=== PATIENT | male | born 1965 | race Caucasian/White ===

== ENCOUNTER 2017-03-30 05:28 | Emergency (ER) | payer MEDICARE ==
[~2017-03-30] VITALS: Ht 180.3 cm; Wt 102.6 kg
[2017-03-30 05:50] VITALS: BP_SYST 141; BP_SYST 150; BP_DIAS 83; BP_DIAS 89; PULSE 67; RESP 18; O2SAT 99
[2017-03-30 05:52] VITALS: BP 150/83; PULSE 67; RESP 20
[2017-03-30 05:57] VITALS: BP 150/83; PULSE 71; RESP 20; TEMP 97.7; O2SAT 99
[2017-03-30 06:10] LABS: AUTOMATED NEUTROPHIL # 3.9 TH/MM3 (1.8-7.7); BASOPHIL # 0.1 TH/MM3 (0-0.2); BASOPHIL % 0.8 % (0.0-2.0); EOSINOPHIL # 0.2 TH/MM3 (0-0.4); EOSINOPHIL % 2.3 % (0.0-4.0); HEMOGLOBIN 14.6 GM/DL (13.0-17.0); LYMPH % 29.2 % (9.0-44.0); MEAN CELL VOLUME 96.3 FL (80.0-100.0); MEAN CORPUSCULAR HEMOGLOBIN 32.1 PG (27.0-34.0); MEAN CORPUSCULAR HGB CONC 33.3 % (32.0-36.0); MEAN PLATELET VOLUME 8.3 FL (7.0-11.0); MONO % 11.9 % (0.0-8.0); MONOCYTE # 0.8 TH/MM3 (0-0.9); NEUT % 55.8 % (16.0-70.0); PLATELET COUNT 334 TH/MM3 (150-450); RED BLOOD COUNT 4.56 MIL/MM3 (4.50-5.90); RED CELL DISTRIBUTION WIDTH 12.6 % (11.6-17.2)
--- NOTE | 2017-03-30 06:10 | RADRPT ---
EXAM DATE/TIME: 03/30/2017 05:56 [facility] COMPARISON: No previous studies available for comparison. INDICATIONS : Left arm pain since yesterday. MEDICAL HISTORY : Hypertension. Diabetes SURGICAL HISTORY : None. ENCOUNTER: Initial ACUITY: 1 day PAIN SCORE: 0/10 LOCATION: Bilateral chest FINDINGS: A single view of the chest demonstrates the lungs to be symmetrically aerated without evidence of mas s, infiltrate or effusion. The cardiomediastinal contours are unremarkable. Osseous structures are intact. CONCLUSION: No acute disease. Andi Barakat MD on March 30, 2017 at 6:07 Board Certified Radiologist. This report was verified electronically.
[2017-03-30 06:20] LABS: CHLORIDE 103 MEQ/L (98-107); SODIUM (NA) 137 MEQ/L (136-145)
[2017-03-30] MEDS ORDERED: METF1000 PO (06:20)
[2017-03-30] MEDS ORDERED: AMLO10TA2 PO (06:20)
[2017-03-30] MEDS ORDERED: ATOR10TA15 PO (06:20)
[2017-03-30] MEDS ORDERED: BISO5TAB2 PO (06:20)
[2017-03-30] MEDS ORDERED: BENA20TA PO ×2 (06:20)
[2017-03-30] MEDS ORDERED: GLIP1TAB51 PO (06:20)
[2017-03-30] MEDS ORDERED: GABA300C5 PO (06:20)
[2017-03-30] MEDS ORDERED: METF500T PO (06:20)
[2017-03-30 06:22] LABS: CALCIUM 9.1 MG/DL (8.5-10.1)
[2017-03-30] MEDS ORDERED: DIPH25CA PO (06:22)
[2017-03-30 06:23] LABS: BLOOD UREA NITROGEN 11 MG/DL (7-18); GLUCOSE,RANDOM 193 MG/DL (74-106); PROTHROMBIN TIME - PATIENT 9.7 SEC (9.8-11.6)
[2017-03-30 06:24] LABS: BICARBONATE 27.3 MEQ/L (21.0-32.0); MAGNESIUM 1.6 MG/DL (1.5-2.5)
--- NOTE | 2017-03-30 06:25 | PD ---
HPI Chief Complaint: Pain: Acute or Chronic Time Seen by Provider: 05:42 Travel History International Travel<30 days: No Contact w/Intl Traveler<30days: No Traveled to known affect area: No History of Present Illness HPI 51 year-old male presents to the emergency department by private transportation for complaint of intermittent left arm ache since yesterday. Patient took aspirin 325 mg around 2 PM yesterday and then 81 mg aspirin at bedtime. Patient states due to persistent discomfort in his left arm sent to come to the emergency room for evaluation. Patient denies chest pain or referred neck jaw back shoulder arm pain. Patient does have history of dyslipidemia diabetes and hypertension that are well controlled on medication. Patient does not smoke cigarettes. Patient does have family history of cardiac disease in his grandfather and his father. Patient denies personal history of CAD. Patient has known thoracic and lumbar spine disc disease has had previous laminectomy. Patient states he has not had evaluation of his neck for degenerative changes were discussed disease. Patient states the left arm ache does radiate into the left side of the neck. Patient denies any numbness tingling or weakness of the extremity. Patient has diabetic peripheral neuropathy and neuropathy secondary to lumbar stenosis according to the patient. Patient rates his discomfort 1/10 in intensity at this time. No report of new lower extremity numbness tingling weakness saddle anesthesia or bladder or bowel dysfunction. Patient reports left arm ache at worst a 6/10 in intensity. PFSH Past Medical History Narrative Medical Hypertension diabetes dyslipidemia; family history myocardial infarction; no tobacco use; nursing notes reviewed Diabetes: Yes Patient Takes Glucophage: Yes (03/29/17) Diminished Hearing: No Hypertension: Yes Medical other: Yes Musculoskeletal: Yes (NEUROPATHY) Tetanus Vaccination: Unknown Past Surgical History Thoracic Surgery: Yes Social History Alcohol Use: Yes (RARELY) Tobacco Use: No Substance Use: No Allergies-Medications (Allergen,Severity, Reaction): Coded Allergies: No Known Allergies (Unverified , 03/30/17) Reported Meds & Prescriptions Reported Meds & Active Scripts Active Reported Diphenhydramine (Diphenhydramine HCl) 25 Mg Cap 25 Mg PO HS PRN Benazepril (Benazepril HCl) 20 Mg Tab 20 Mg PO DAILY Benazepril (Benazepril HCl) 20 Mg Tab 20 Mg PO BID Amlodipine (Amlodipine Besylate) 10 Mg Tab 10 Mg PO DAILY Bisoprolol-Hydrochlorothiazide 5-6.25 Mg Tab 1 Tab PO DAILY Atorvastatin (Atorvastatin Calcium) 10 Mg Tab 10 Mg PO HS Metformin (Metformin HCl) 500 Mg Tab 500 Mg PO DAILY With a meal Metformin (Metformin HCl) 1,000 Mg Tab 1,000 Mg PO BIDPC Glipizide ER (Glipizide) 10 Mg Gay 10 Mg PO BID Take with breakfast or first main meal of the day Gabapentin 300 Mg Cap 300 Mg PO TID Narrative Medication Amlodipine/benazepril Review of Systems Except as stated in HPI: all other systems reviewed are Neg Physical Exam Narrative GENERAL: Well-developed well-nourished male in no acute distress no respiratory distress SKIN: Warm and dry. HEAD: Normocephalic. EYES: No scleral icterus. No injection or drainage. NECK: Supple, trachea midline. No JVD or lymphadenopathy. CARDIOVASCULAR: Regular rate and rhythm without murmurs, gallops, or rubs. RESPIRATORY: Breath sounds equal bilaterally. No accessory muscle use. GASTROINTESTINAL: Abdomen soft, non-tender, nondistended. MUSCULOSKELETAL: No cyanosis, or edema. BACK: Nontender without obvious deformity. No CVA tenderness. Data Data Last Documented VS Vital Signs Date Time Temp Pulse Resp B/P (MAP) Pulse Ox O2 Delivery O2 Flow Rate FiO2 03/30/17 07:10 60 18 123/71 (88) 96 Room Air 03/30/17 05:57 97.7 Orders Orders Electrocardiogram (03/30/17 05:42) Basic Metabolic Panel (Bmp) (03/30/17 05:42) Ckmb (Isoenzyme) Profile (03/30/17 05:42) Complete Blood Count With Diff (03/30/17 05:42) Magnesium (Mg) (03/30/17 05:42) Prothrombin Time / Inr (Pt) (03/30/17 05:42) Act Partial Throm Time (Ptt) (03/30/17 05:42) Troponin I (03/30/17 05:42) Chest, Single Ap (03/30/17 05:42) Ecg Monitoring (03/30/17 05:42) Bilateral Bp Monitoring (03/30/17 05:42) Iv Access Insert/Monitor (03/30/17 05:42) Oximetry (03/30/17 05:42) Oxygen Administration (03/30/17 05:42) CKMB (03/30/17 05:55) CKMB% (03/30/17 05:55) Ct Cerv Spine W/O Contrast (03/30/17 ) Aspirin Chew (Aspirin Chew) (03/30/17 07:00) Ketorolac Inj (Toradol Inj) (03/30/17 07:00) Labs Laboratory Tests Test 03/30/17 05:55 White Blood Count 7.0 TH/MM3 Red Blood Count 4.56 MIL/MM3 Hemoglobin 14.6 GM/DL Hematocrit 44.0 % Mean Corpuscular Volume 96.3 FL Mean Corpuscular Hemoglobin 32.1 PG Mean Corpuscular Hemoglobin Concent 33.3 % Red Cell Distribution Width 12.6 % Platelet Count 334 TH/MM3 Mean Platelet Volume 8.3 FL Neutrophils (%) (Auto) 55.8 % Lymphocytes (%) (Auto) 29.2 % Monocytes (%) (Auto) 11.9 % Eosinophils (%) (Auto) 2.3 % Basophils (%) (Auto) 0.8 % Neutrophils # (Auto) 3.9 TH/MM3 Lymphocytes # (Auto) 2.0 TH/MM3 Monocytes # (Auto) 0.8 TH/MM3 Eosinophils # (Auto) 0.2 TH/MM3 Basophils # (Auto) 0.1 TH/MM3 CBC Comment DIFF FINAL Differential Comment Prothrombin Time 9.7 SEC Prothromb Time International Ratio 1.0 RATIO Activated Partial Thromboplast Time 25.9 SEC Blood Urea Nitrogen 11 MG/DL Creatinine 0.89 MG/DL Random Glucose 193 MG/DL Calcium Level 9.1 MG/DL Magnesium Level 1.6 MG/DL Sodium Level 137 MEQ/L Potassium Level 3.8 MEQ/L Chloride Level 103 MEQ/L Carbon Dioxide Level 27.3 MEQ/L Anion Gap 7 MEQ/L Estimat Glomerular Filtration Rate 89 ML/MIN Total Creatine Kinase 109 U/L Creatine Kinase MB 1.1 NG/ML Troponin I LESS THAN 0.02 NG/ML MDM Medical Decision Making Medical Screen Exam Complete: Yes Emergency Medical Condition: Yes Medical Record Reviewed: Yes Interpretation(s) EKG: Normal sinus rhythm rate [address] elevation injury pattern or ectopy noted Last Impressions Chest X-Ray 03/30/17 0542 Signed Impressions: Service Date/Time: Thursday, March 30, 2017 05:56 - CONCLUSION: No acute disease. 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 Labs pending chest x-ray reveals no acute abnormalities Lab values are found to be in normal range except for random glucose of 193 cardiac enzymes CK and troponin I values are found to be in normal range Cardiac risk factor male, age 51, hypertension, dyslipidemia, diabetes, family history of CAD; left upper extremity may reflect anginal equivalent however may also reflect cervical radiculopathy CT cervical spine noncontrast ordered and patient offered observation admission to chest pain center per protocol @7:15 AM care signed over to Dr. Alonso for follow-up of pending CT cervical spine Sherrie Butts MD Mar 30, 2017 06:25
[2017-03-30 06:26] LABS: CREATININE 0.89 MG/DL (0.60-1.30); GLOMERULAR FILTRATION RATE 89 ML/MIN (>89)
[2017-03-30 06:31] LABS: TROPONIN I LESS THAN 0.02 NG/ML (0.02-0.05)
[2017-03-30] MEDS ORDERED: ASPIRIN 81 MG CHEW TAB CHEW ONE (07:00)
[2017-03-30] MEDS ORDERED: KETOROLAC TROMETHAMINE 30 MG/ML (IVP) VIAL IV PUSH ONE (07:00)
[2017-03-30 07:10] VITALS: BP 123/71; PULSE 60; RESP 18; O2SAT 96
--- NOTE | 2017-03-30 07:54 | RADRPT ---
EXAM DATE/TIME: 03/30/2017 07:26 [facility] COMPARISON: No previous studies available for comparison. INDICATIONS : Left arm pain since yesterday. No injury. RADIATION DOSE: 26.65 CTDIvol (mGy) MEDICAL HISTORY : Hypertension. Diabetes. SURGICAL HISTORY : None. ENCOUNTER: Initial ACUITY: 2 days PAIN SCALE: 0/10 LOCATION: neck TECHNIQUE: Volumetric scanning of the cervical spine was performed. Multiplanar reconstructions in the sagittal, coronal and oblique axial planes were performed. Using automated exposure control and adjustment o f the mA and/or kV according to patient size, radiation dose was kept as low as reasonably achievable to obtain optimal diagnostic quality images. DICOM format image data is available electronically f or review and comparison. FINDINGS: VERTEBRAE: Normal vertebral body height. Degenerative changes greatest from C5-C7. Anterior plate osteophytes C4 -C7. No compression fracture. ALIGNMENT: No evidence of subluxation. C2-C3: The bony spinal canal is normal in size. No evidence of disc bulge or herniation. The neural forami na are bilaterally patent. C3-C4: The bony spinal canal is normal in size. No evidence of disc bulge or herniation. Uncovertebral spur ring causes moderate left and mild right neural foraminal narrowing C4-C5: The bony spinal canal is normal in size. No evidence of disc bulge or herniation. Uncovertebral spur ring causes moderate left neural foraminal narrowing. Right neural foramina is patent. C5-C6: Mild broad-based protrusion abuts the thecal sac. No canal stenosis. Uncovertebral spurring causes mi ld bilateral neural foraminal narrowing C6-C7: Moderate broad-based extrusion abuts the ventral thecal sac and causes [id number] canal stenosi s. Mild bilateral neural foraminal narrowing, greater on the left. C7-T1: The bony spinal canal is normal in size. No evidence of disc bulge or herniation. The neural forami na are bilaterally patent. CONCLUSION: Degenerative changes as described above. Michael Lubin MD on March 30, 2017 at 7:48 Board Certified Radiologist. This report was verified electronically.
[2017-03-30 07:55] VITALS: BP 119/68; PULSE 63; RESP 16; O2SAT 97
[2017-03-30] MEDS ORDERED: PRED20 PO (08:09)
--- NOTE | 2017-03-30 08:10 | PD ---
Physical Exam Date Seen by Provider: Mar 30, 2017 Narrative Care was assumed at [address] of his C-spine. Patient reports left arm pain. He gives a history of previous lumbar radiculopathy. He does state that the pain in his left arm is similar. Data Data Last Documented VS Vital Signs Date Time Temp Pulse Resp B/P (MAP) Pulse Ox O2 Delivery O2 Flow Rate FiO2 03/30/17 07:55 63 16 119/68 (85) 97 Room Air 03/30/17 05:57 97.7 Orders Orders Electrocardiogram (03/30/17 05:42) Basic Metabolic Panel (Bmp) (03/30/17 05:42) Ckmb (Isoenzyme) Profile (03/30/17 05:42) Complete Blood Count With Diff (03/30/17 05:42) Magnesium (Mg) (03/30/17 05:42) Prothrombin Time / Inr (Pt) (03/30/17 05:42) Act Partial Throm Time (Ptt) (03/30/17 05:42) Troponin I (03/30/17 05:42) Chest, Single Ap (03/30/17 05:42) Ecg Monitoring (03/30/17 05:42) Bilateral Bp Monitoring (03/30/17 05:42) Iv Access Insert/Monitor (03/30/17 05:42) Oximetry (03/30/17 05:42) Oxygen Administration (03/30/17 05:42) CKMB (03/30/17 05:55) CKMB% (03/30/17 05:55) Ct Cerv Spine W/O Contrast (03/30/17 ) Aspirin Chew (Aspirin Chew) (03/30/17 07:00) Ketorolac Inj (Toradol Inj) (03/30/17 07:00) Labs Laboratory Tests Test 03/30/17 05:55 White Blood Count 7.0 TH/MM3 Red Blood Count 4.56 MIL/MM3 Hemoglobin 14.6 GM/DL Hematocrit 44.0 % Mean Corpuscular Volume 96.3 FL Mean Corpuscular Hemoglobin 32.1 PG Mean Corpuscular Hemoglobin Concent 33.3 % Red Cell Distribution Width 12.6 % Platelet Count 334 TH/MM3 Mean Platelet Volume 8.3 FL Neutrophils (%) (Auto) 55.8 % Lymphocytes (%) (Auto) 29.2 % Monocytes (%) (Auto) 11.9 % Eosinophils (%) (Auto) 2.3 % Basophils (%) (Auto) 0.8 % Neutrophils # (Auto) 3.9 TH/MM3 Lymphocytes # (Auto) 2.0 TH/MM3 Monocytes # (Auto) 0.8 TH/MM3 Eosinophils # (Auto) 0.2 TH/MM3 Basophils # (Auto) 0.1 TH/MM3 CBC Comment DIFF FINAL Differential Comment Prothrombin Time 9.7 SEC Prothromb Time International Ratio 1.0 RATIO Activated Partial Thromboplast Time 25.9 SEC Blood Urea Nitrogen 11 MG/DL Creatinine 0.89 MG/DL Random Glucose 193 MG/DL Calcium Level 9.1 MG/DL Magnesium Level 1.6 MG/DL Sodium Level 137 MEQ/L Potassium Level 3.8 MEQ/L Chloride Level 103 MEQ/L Carbon Dioxide Level 27.3 MEQ/L Anion Gap 7 MEQ/L Estimat Glomerular Filtration Rate 89 ML/MIN Total Creatine Kinase 109 U/L Creatine Kinase MB 1.1 NG/ML Troponin I LESS THAN 0.02 NG/ML MDM Supervised Visit with KRISHAN: No Narrative Course Last Impressions Chest X-Ray 03/30/17 0542 Signed Impressions: Service Date/Time: Thursday, March 30, 2017 05:56 - CONCLUSION: No acute disease. Andi Barakat MD Cervical Spine CT 03/30/17 0000 Signed Impressions: Service Date/Time: Thursday, March 30, 2017 07:26 - CONCLUSION: Degenerative changes as described above. Michael Lubin MD The results of the CT were discussed with the patient. I will place her on steroids for cervical radiculopathy. He will follow with his primary care provider later this week. 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
--- NOTE | 2017-03-30 18:49 | EKG ---
Date Performed: 03/30/2017 Time Performed: 05:43:35 PTAGE: 51 years EKG: Sinus rhythm NORMAL ECG NO PREVIOUS TRACING DOCTOR: Lorenzo Guerrero Interpretating Date/Time 03/30/2017 18:48:13
== END 2017-03-30 08:54 | disposition home or self-care (01) ==
LOC: PHED 05:28
DX: M79.602 Pain in left arm (principal); M47.22 Other spondylosis with radiculopathy, cervical region; I10 Essential (primary) hypertension; E11.9 Type 2 diabetes mellitus without complications; E78.5 Hyperlipidemia, unspecified; Z82.49 Family history of ischemic heart disease and other diseases of the circulatory system; Z79.82 Long term (current) use of aspirin; Z79.84 Long term (current) use of oral hypoglycemic drugs; Z79.899 Other long term (current) drug therapy
CPT/HCPCS: 71045; 72125; 80048; 82550; 82552; 83735; 84484; 85025; 85610; 85730; 93005; 96374; 99285; J1885